=== PATIENT | female | born 1940 | race Caucasian/White ===

== ENCOUNTER 2017-01-29 07:37 | Emergency (ER) | payer MEDICARE, OTHER ==
[~2017-01-29] VITALS: Ht 157.5 cm; Wt 59.0 kg
[~2017-01-29 07:37] MED LIST: ASPIRIN81 MG ORAL; ZOFRAN ODT4 MG ORAL
[2017-01-29] MEDS ORDERED: CAPSAICIN42.5 GM TP (08:12)
[2017-01-29] MEDS ORDERED: Capsaicin 0.075% Cream TOPIC ONE (08:15)
--- NOTE | 2017-01-29 08:19 | Emergency Room Report ---
History of Present Illness General Chief Complaint: Pain Source: Patient Present Illness HPI Patient is 76-year-old female who presented after increasingly painful rash to her back. The patient had recently been seen by her doctor and diagnosed with shingles. She had been given prescriptions for medications. This had been present for several weeks. The patient reported having severe pain which was not relieved by her current medications. The patient had lesions to her back. Skin lesions had healed Allergies: Coded Allergies: SULFA (SULFONAMIDE ANTIBIOTICS) (Unverified Allergy, Unknown, 12/10/14) Patient History Past Medical History: see triage record Reviewed Nursing Documentation: PMH: Agreed, PSxH: Agreed Nursing Documentation-PMH Past Medical History: No Stated History Review of Systems All Other Systems: negative except mentioned in HPI Physical Exam Vital Signs Date Time Temp Pulse Resp B/P Pulse Ox O2 Delivery O2 Flow Rate FiO2 01/29/17 07:47 97.5 60 18 141/75 98 Room Air General Appearance: well appearing, no apparent distress, alert, GCS 15, non- toxic Head: normocephalic, atraumatic ENT: hearing grossly normal, normal voice Neck: full range of motion, supple Respiratory: no respiratory distress, speaking full sentences Cardiovascular #1: normal inspection Gastrointestinal: normal inspection Musculoskeletal: normal inspection, no calf tenderness Neurologic: normal inspection, alert, oriented x3, responsive, finishing range operator III-XII nml as tested, normal gait Psychiatric: mood/affect normal Skin: other - healed scars in dermatomal distribution to left side of back Medical Decision Making Diagnostic Impression: Primary Impression: Post herpetic neuralgia ER Course Patient presented for painful skin rash. Differential diagnosis included was not limited to postherpetic neuralgia, contact dermatitis, among others. Patient 's benign exam and does not appear to require any further imaging or laboratory testing at this time. The patient was given topical capsaicin cream. She is advised with chemical unit operator on care of her rash. She is advised to recheck with her primary care physician Last Vital Signs Date Time Temp Pulse Resp B/P Pulse Ox O2 Delivery O2 Flow Rate FiO2 01/29/17 07:47 97.5 60 18 141/75 98 Room Air Status: improved Disposition: HOME, SELF-CARE Condition: Stable Scripts Capsaicin (CAPSAICIN) 42.5 Gm Cream..g. 42.5 GM TP TID, #42.5 GM Prov: Mekhi Meyer 01/29/17 Patient Instructions: Postherpetic Neuralgia Mekhi Meyer Jan 29, 2017 08:19
[2017-01-29 08:49] VITALS: BP 141/75
== END 2017-01-29 08:49 | disposition home or self-care (01) ==
LOC: EMR 08:26
DX: B02.29 Other postherpetic nervous system involvement (principal); R21 Rash and other nonspecific skin eruption; Z88.2 Allergy status to sulfonamides
CPT/HCPCS: 99283

== ENCOUNTER 2019-04-18 15:49 | Emergency (ER) | payer MEDICARE, OTHER ==
[~2019-04-18] VITALS: Ht 157.5 cm; Wt 62.1 kg
[~2019-04-18 15:49] MED LIST changes: +CAPSAICIN42.5 GM TP
--- NOTE | 2019-04-18 16:06 | NUR ---
ED Nurse Note: Pt walked in ED from home accompanied by daughter d/t left shoulder pain. Pt aox4, states she tripped and fell on the street today. No swelling/open wounds noted on the left shoulder.
[2019-04-18 16:11] VITALS: BP 178/76
--- NOTE | 2019-04-18 16:15 | NUR ---
ED Nurse Note: ERMD at bedside. Informed and made aware of high BP.
--- NOTE | 2019-04-18 16:29 | NUR ---
ED Nurse Note: xray at bedside.
--- NOTE | 2019-04-18 17:04 | Emergency Room Report ---
History of Present Illness General Chief Complaint: Upper Extremity Injury Source: Patient Present Illness HPI 78-year-old female with no significant past medical history brought in by daughter after an hour prior to arrival due to fall on left shoulder. Patient is rating the pain 7 out of 10 upon palpation of the affected area and certain movements. No bony tenderness is noted. Denies tingling and numbness. No impingement sign is noted. Denies other injury, head injury, loss of consciousness and dizziness. Patient is not on any blood thinners. Allergies: Coded Allergies: SULFA (SULFONAMIDE ANTIBIOTICS) (Unverified Allergy, Unknown, 12/10/14) Patient History Past Medical History: see triage record Past Surgical History: unable to obtain Pertinent Family History: none Now: No Immunizations: UTD Reviewed Nursing Documentation: PMH: Agreed; PSxH: Agreed Nursing Documentation-PMH Past Medical History: No Stated History Review of Systems All Other Systems: negative except mentioned in HPI Physical Exam Vital Signs Date Time Temp Pulse Resp B/P (MAP) Pulse Ox O2 Delivery O2 Flow Rate FiO2 04/18/19 15:56 97.9 59 18 188/80 (116) 99 Room Air Sp02 EP Interpretation: reviewed, normal General Appearance: no apparent distress, alert, GCS 15, non-toxic Head: normocephalic, atraumatic Eyes: bilateral eye normal inspection, bilateral eye PERRL ENT: hearing grossly normal, normal pharynx, no angioedema, normal voice Neck: full range of motion, supple/symm/no masses Respiratory: chest non-tender, lungs clear, normal breath sounds, no wheezing, speaking full sentences Cardiovascular #1: regular rate, rhythm, no edema, no murmur Cardiovascular #2: 2+ radial (R), 2+ radial (L) Gastrointestinal: normal bowel sounds, non tender, soft, non-distended, no guarding, no rebound Genitourinary: normal inspection, no CVA tenderness Musculoskeletal: back normal, digits/nails normal, gait/station normal, normal range of motion, no calf tenderness, pelvis stable, other - No impingement sign noted Neurologic: alert, oriented x3, responsive, motor strength/tone normal, sensory intact, speech normal Psychiatric: judgement/insight normal, memory normal, mood/affect normal, no suicidal/homicidal ideation Skin: no rash Lymphatic: no adenopathy Procedures Splinting Splinting : Consent: Verbal Location: left shoulder Progress sling Medical Decision Making PA Attestation All diagnoses and treatment plans were reviewed and discussed with my supervising physician Dr. Mckeon Diagnostic Impression: Primary Impression: Shoulder contusion Additional Impression: Shoulder sprain ER Course 78-year-old female with no significant past medical history brought in by daughter after an hour prior to arrival , due to fall on left shoulder Patient is rating the pain 7 out of 10 upon palpation of the affected area and certain movements. No bony tenderness is noted. Denies tingling and numbness. No impingement sign is noted. Denies other injury, head injury, loss of consciousness and dizziness. Patient is not on any blood thinners. Ddx considered but are not limited to : Shoulder sprain versus contusion versus sprain versus fracture Vital signs: are WNL, pt. is afebrile H&PE are most consistent with: Shoulder contusion and sprain ORDERS: Shoulder x-ray, Motrin, Voltaren gel ED INTERVENTIONS: Arm sling DISCHARGE: At this time pt. is stable for d/c to home. Will provide printed patient care instructions, and any necessary prescriptions. Care plan and follow up instructions have been discussed with the patient prior to discharge. Patient to follow-up with her primary care provider for further assessment and possible referral to patient transition specialist. If worsening symptoms return to the emergency room Other X-Ray Diagnostic Results Other X-Ray Diagnostic Results : X-Ray ordered: left shoulder # of Views/Limited Vs Complete: 3 View Indication: Pain EP Interpretation: Yes PA Xray: Interpretation reviewed, by supervising MD, and agrees with findings. Interpretation: no dislocation, no soft tissue swelling, no fractures Impression: No acute disease Electronically Signed by: Zo Blank PA-C Last Vital Signs Date Time Temp Pulse Resp B/P (MAP) Pulse Ox O2 Delivery O2 Flow Rate FiO2 04/18/19 16:11 97.9 58 18 178/76 99 Room Air Disposition: HOME, SELF-CARE Condition: Stable Scripts Diclofenac Sodium (VOLTAREN) 100 Gm Gel..gram. 2 GM TP TID, #100 GM Prov: Zo Naranjo 04/18/19 Ibuprofen* (MOTRIN*) 600 Mg Tablet 600 MG ORAL Q6H PRN for For Pain, #30 TAB 0 Refills Prov: Zo Naranjo 04/18/19 Patient Instructions: Shoulder Sprain Additional Instructions: Take medication as directed, follow-up with primary care provider, if worsening symptoms return to the Emergency room Zo Naranjo Apr 18, 2019 17:04
[2019-04-18] MEDS ORDERED: VOLTAREN100 G1 TP (17:05)
[2019-04-18] MEDS ORDERED: IBUPROFEN600 MG ORAL (17:05)
--- NOTE | 2019-04-18 17:10 | NUR ---
ER DISCHARGE NOTE: Patient is cleared to be discharged per ERMD, pt is aox4, on room air, with stable vital signs. pt was given dc and prescription instructions, pt was able to verbalize understanding, pt id band removed without complications. pt is able to ambulate with steady gait, accompanied by daugther. pt took all belongings.
[2019-04-18 17:58] VITALS: BP 152/72
--- NOTE | 2019-04-19 08:49 | Diagnostic Imaging Report ---
Indication: Trauma, pain Technique: 3 views of the left shoulder Comparison: none Findings: Bones are osteoporotic. No definite acute fractures. No dislocations. Impression: No acute bony trauma
== END 2019-04-18 17:10 | disposition home or self-care (01) ==
LOC: EMR 16:37
DX: S43.402A Unspecified sprain of left shoulder joint, initial encounter (principal); S40.012A Contusion of left shoulder, initial encounter; Z88.2 Allergy status to sulfonamides; W01.0XXA Fall on same level from slipping, tripping and stumbling without subsequent striking against object, initial encounter; Y92.9 Unspecified place or not applicable
CPT/HCPCS: 99283